=== PATIENT | female | born 1950 | race Caucasian/White ===

== ENCOUNTER 2024-05-29 19:42 | Emergency (ER) | payer MEDICARE, SELFPAY ==
[2024-05-29 19:47] VITALS: BP 158/90; PULSE 110; TEMP 36.8; O2SAT 91; BMI 31.2
--- NOTE | 2024-05-29 19:55 | PC.NURSE ---
coarse expiratory wheezes
--- NOTE | 2024-05-29 20:00 | XR_ITS ---
The [address] [address] Patient Name: VICKIE PEDRO MRN: [id number] date: 1950 Sex: F Assigned Patient Location: ER Current Patient Location: ED.MAIN Accession/Order Number: [id number] Exam Date: 05/29/2024 20:15 Report Date: 05/29/2024 21:25 At the request of: LALY THORNE Procedure: XR chest 1V EXAM: XR chest 1V HISTORY: Cough, short of breath COMPARISON: None. TECHNIQUE: FINDINGS: XR/XR chest 1V IMPRESSION: SINGLE VIEW CHEST: 05/29/2024 8:15 PM EST CLINICAL HISTORY:Cough, short of breath COMPARISONS: None. TECHNIQUE: Single frontal view of the chest, utilizing portable technique. Portable radiography should be considered a technically compromised study. Strongly consider dedicated PA and lateral chest radiographs, as clinically indicated. FINDINGS: LINES AND TUBES: None appreciated. CARDIAC SILHOUETTE: Within normal limits. MEDIASTINAL AND HILAR CONTOUR: Within normal limits. PULMONARY PARENCHYMA AND PLEURA: No consolidation, edema, effusion, or pneumothorax. OSSEOUS STRUCTURES:Nothing significant. OTHER COMMENTS:None. IMPRESSION: No acute cardiopulmonary disease. This report was generated with voice recognition software. Effort has been made to ensure accuracy of this report, however, occasional wording errors may persist. Please contact our office with any questions. Electronically authenticated by: LANA SAMUEL Date: 05/29/2024 21:25
--- NOTE | 2024-05-29 20:01 | ED_ITS ---
HPI HPI - General Adult General Chief complaint: Shortness of Breath/Dyspnea Stated complaint: diff breathing Time Seen by Provider: 05/29/24 19:50 Source: patient Mode of arrival: walk-in History of Present Illness HPI narrative: 73-year-old female presents for a 1 week history of cough and shortness of breath. She has been coughing up some clear phlegm and has not had a known fever. She senses that she is wheezing but has never used an albuterol inhaler in the past. She smokes cigarettes and has no history of COPD. No vomiting or diarrhea or hemoptysis. Related Data Previous Rx's ?Medication ?Instructions ?Recorded albuterol sulfate 90 mcg/actuation 2 inh inhalation Q4H PRN shortness 05/29/24 aerosol inhaler of breath or wheezing #8.5 grams prednisone 10 mg tablet See Rx Instructions .Route 05/29/24 .COMPLEX #30 tabs Allergies Allergy/AdvReac Type Severity Reaction Status Date / Time Tetanus Vaccines and Toxoid Allergy Intermediate Unknown Verified 05/29/24 19:47 Opioid HPI Opioid Management Most Recent Opioid Data: No Data to Display Review of Systems ROS Narrative A ten point review of systems is negative except as noted above. PFSH PFSH Social History Little interest or pleasure in doing things: not at all Feeling down, depressed, or hopeless: not at all Exam Narrative Exam Narrative: Nurses note and vital signs reviewed and patient is not hypoxic. General: The patient appears in no acute respiratory distress Skin: Warm, dry, no pallor noted. There is no rash noted. Head: Normocephalic, atraumatic Eye: Normal conjunctiva, no drainage Ears, Nose, Mouth, and Throat: oral mucosa is moist. Nares patent. Cardiovascular: Regular Rate and Rhythm Respiratory: Bilateral rhonchi throughout, breath sounds are equal Back: non-tender GI: Soft and nontender Musculoskeletal: The patient has no evidence of calf tenderness, no pitting edema, symmetrical pulses noted bilaterally Neurological: A&O, normal speech Psychiatric: Cooperative Constitutional Vital Signs, click to edit/add: Last Vital Signs Temp 98.5 F 05/29/24 21:27 Pulse 105 H 05/29/24 21:27 Resp 20 05/29/24 21:27 BP 127/87 05/29/24 21:27 Pulse Ox 93 L 05/29/24 21:27 O2 Del Method Room Air 05/29/24 21:27 Course Vital Signs Vital signs: Vital Signs Temperature 98.3 F 05/29/24 19:47 Pulse Rate 110 H 05/29/24 19:47 Respiratory Rate 28 H 05/29/24 19:47 Blood Pressure 158/90 H 05/29/24 19:47 Pulse Oximetry 91 L 05/29/24 19:47 Oxygen Delivery Method Room Air 05/29/24 19:47 Temperature 98.5 F 05/29/24 21:27 Pulse Rate 105 H 05/29/24 21:27 Respiratory Rate 20 05/29/24 21:27 Blood Pressure 127/87 05/29/24 21:27 Pulse Oximetry 93 L 05/29/24 21:27 Oxygen Delivery Method Room Air 05/29/24 21:27 Medical Decision Making MDM Narrative Medical decision making narrative: Chest x-ray, COVID, and influenza are negative. The patient was given an aerosol treatment and feels much better now and is able to be discharged home with prescriptions for prednisone and albuterol inhaler. Treatment diagnosis and follow-up were discussed with the patient. Differential Diagnosis Differential Diagnosis: URI, pneumonia, COVID, influenza Lab Data Lab results reviewed: Yes I reviewed the patient's lab results Labs: Lab Results 05/29/24 Range/Units 20:01 Influenza Type A Ag Negative Influenza Type B Ag Negative SARS-CoV-2 Ag (CV2AG) Negative (NEGATIVE) Imaging Data Chest x-ray: Radiologist's impression: ITS Impressions Chest X-Ray 05/29/24 20:00 IMPRESSION: SINGLE VIEW CHEST: 05/29/2024 8:15 PM EST CLINICAL HISTORY:Cough, short of breath COMPARISONS: None. TECHNIQUE: Single frontal view of the chest, utilizing portable technique. Portable radiography should be considered a technically compromised study. Strongly consider dedicated PA and lateral chest radiographs, as clinically indicated. FINDINGS: LINES AND TUBES: None appreciated. CARDIAC SILHOUETTE: Within normal limits. MEDIASTINAL AND HILAR CONTOUR: Within normal limits. PULMONARY PARENCHYMA AND PLEURA: No consolidation, edema, effusion, or pneumothorax. OSSEOUS STRUCTURES:Nothing significant. OTHER COMMENTS:None. IMPRESSION: No acute cardiopulmonary disease. This report was generated with voice recognition software. Effort has been made to ensure accuracy of this report, however, occasional wording errors may persist. Please contact our office with any questions. Electronically authenticated by: LANA SAMUEL Date: 05/29/2024 21:25 Discharge Plan Discharge Chief Complaint: Shortness of Breath/Dyspnea Clinical Impression: Acute upper respiratory infection Patient Disposition: Home, Self-Care Time of Disposition Decision: 21:34 Condition: Good Mode of Transportation: Private Vehicle Prescriptions / Home Meds: New prednisone 10 mg tablet See Rx Instructions .ROUTE .COMPLEX Qty: 30 0RF Rx Instructions: 4 by mouth daily for three days then 3 by mouth daily for three days then 2 by mouth daily for three days then 1 by mouth daily for three days albuterol sulfate 90 mcg/actuation HFA aerosol inhaler 2 inh inhalation Q4H PRN (Reason: shortness of breath or wheezing) Qty: 8.5 0RF Print Language: Lithuanian Instructions: Upper Respiratory Infection (ED) Referrals: Physician,Non-Staff, [Physician] - 1 week
[2024-05-29 20:10] VITALS: BP 117/68; PULSE 116; TEMP 38.2; O2SAT 93
[2024-05-29] MEDS: ACETAMINOPHEN 325 MG TABLET 650 MG PO (20:26)
[2024-05-29 20:37] VITALS: PULSE 92; O2SAT 92
[2024-05-29] MEDS: ALBUTEROL SULFATE 2.5 MG/3 ML VIAL NEB IH (20:37)
[2024-05-29 20:57] LABS: Influenza Virus A Antigen Negative; Influenza Virus B Antigen Negative; Internal Control Within Normal Limits; SARS-CoV-2 Ag NEGATIVE (NEGATIVE)
[2024-05-29 21:27] VITALS: BP 127/87; PULSE 105; TEMP 36.9; O2SAT 93
[2024-05-29] MEDS: PREDNISONE 20 MG TABLET 40 MG PO (21:48)
== END 2024-05-29 21:55 | disposition home or self-care (01) ==
PROVIDERS: Emergency Provider Emergency Medicine; Family Provider Family Medicine; PCP Family Medicine
DX: J06.9 Acute upper respiratory infection, unspecified (principal); F17.210 Nicotine dependence, cigarettes, uncomplicated; R06.02 Shortness of breath
CPT/HCPCS: 71045; 87804; 87811; 94640; 99285; J7512